=== PATIENT | female | born 1980 | race Two or more races ===

== ENCOUNTER 2021-12-09 21:31 | Emergency (ER) | payer BC, OTHER ==
[~2021-12-09] VITALS: Ht 162.6 cm; Wt 78.5 kg
[2021-12-09] MEDS ORDERED: PROCHLORPERAZINE EDISYLATE 10 MG/2 ML VIAL ONE (22:14)
[2021-12-09] MEDS ORDERED: hydrALAZINE HCL IV 20 MG VIAL ONE (22:14)
[2021-12-09] MEDS ORDERED: KETOROLAC TROMETHAMINE 15 MG/ML VIAL ONE (22:14)
[2021-12-09] MEDS ORDERED: AMLO-212 PO (22:21)
--- NOTE | 2021-12-09 22:28 | NUR ---
IV LINE ESTABLISHED, [id number]
[2021-12-09] MEDS ORDERED: PROCHLORPERAZINE EDISYLATE 10 MG/2 ML VIAL IVP ONE (22:30)
[2021-12-09] MEDS ORDERED: KETOROLAC TROMETHAMINE INJ 30 MG/ML VIAL IV ONE (22:30)
[2021-12-09] MEDS ORDERED: hydrALAZINE HCL IV 20 MG VIAL IV ONE (22:30)
[2021-12-09 23:03] VITALS: BP 140/88
--- NOTE | 2021-12-09 23:03 | NUR ---
Patient discharged to home in stable condition. Written and verbal after care instructions given. Patient verbalizes understanding of instruction.
== END 2021-12-09 23:05 | disposition home or self-care (01) ==
LOC: ER 21:39
DX: R51.9 Headache, unspecified (principal); I16.0 Hypertensive urgency; Z88.0 Allergy status to penicillin; Z79.899 Other long term (current) drug therapy
CPT/HCPCS: 99284; 96374; 96375; J0780; J0360; J1885